=== PATIENT | female | born 1975 | race African-American/Black ===

== ENCOUNTER 2016-07-23 21:29 | Emergency (ER) | payer MEDICAID ==
[~2016-07-23 21:29] MED LIST: ASPIR 8181 MG PO; PRI20 PO; ZES10 PO; ZOC20 PO
[2016-07-23 23:11] VITALS: BP 141/89
== END 2016-07-23 23:12 | disposition home or self-care (01) ==
LOC: ED 21:29
DX: M77.9 Enthesopathy, unspecified (principal); G89.29 Other chronic pain; M79.642 Pain in left hand; Z79.899 Other long term (current) drug therapy; Z88.1 Allergy status to other antibiotic agents; Z88.5 Allergy status to narcotic agent; J45.909 Unspecified asthma, uncomplicated
CPT/HCPCS: J1030; J1100

== ENCOUNTER 2016-11-20 21:35 | Emergency (ER) | payer MEDICAID ==
[~2016-11-20] VITALS: Ht 172.7 cm; Wt 116.1 kg
[2016-11-21 00:41] VITALS: BP 144/96
== END 2016-11-21 00:30 | disposition home or self-care (01) ==
LOC: ED 21:35
DX: J40 Bronchitis, not specified as acute or chronic (principal); J06.9 Acute upper respiratory infection, unspecified; Z88.5 Allergy status to narcotic agent; Z88.2 Allergy status to sulfonamides; Z88.8 Allergy status to other drugs, medicaments and biological substances
CPT/HCPCS: J7613

== ENCOUNTER 2017-04-25 11:28 | Emergency (ER) | payer MEDICAID ==
[~2017-04-25] VITALS: Ht 172.7 cm; Wt 118.4 kg
[2017-04-25 11:45] VITALS: Ht 172.7 cm; Wt 118.4 kg
[2017-04-25 13:09] VITALS: BP 140/88
== END 2017-04-25 13:09 | disposition home or self-care (01) ==
LOC: ED 11:28
DX: J06.9 Acute upper respiratory infection, unspecified (principal); R07.89 Other chest pain; Z88.1 Allergy status to other antibiotic agents; Z88.6 Allergy status to analgesic agent

== ENCOUNTER 2018-05-14 21:42 | Emergency (ER) | payer MEDICAID ==
[~2018-05-14] VITALS: Ht 172.7 cm; Wt 122.5 kg
[2018-05-14 22:31] VITALS: Ht 172.7 cm; Wt 122.5 kg
[2018-05-14 23:57] VITALS: BP 138/80
== END 2018-05-14 23:57 | disposition home or self-care (01) ==
LOC: ED 21:42
DX: S16.1XXA Strain of muscle, fascia and tendon at neck level, initial encounter (principal); J45.909 Unspecified asthma, uncomplicated; G89.29 Other chronic pain; Z98.890 Other specified postprocedural states; Z88.1 Allergy status to other antibiotic agents; Z88.2 Allergy status to sulfonamides; Z88.6 Allergy status to analgesic agent; X58.XXXA Exposure to other specified factors, initial encounter; Y93.89 Activity, other specified; Y92.89 Other specified places as the place of occurrence of the external cause; Y99.8 Other external cause status